=== PATIENT | female | born 1985 | race Caucasian/White ===

== ENCOUNTER → 2021-06-01 15:10 | Outpatient (CLI) | payer OTHER, SELFPAY ==
--- NOTE | 2021-06-01 11:30 | LES_PTH ---
PATIENT: JIE BHATIA [facility] U[facility][id number] AGE/SX: 40/F ROOM: RE06/01/[address]: Dr. Gaudencio Gooden MD : [id number] BED: DIS: SPEC #: [id number] RECD: 06/01/21 14:46 STATUS: CHRISTOPHE ADOLFO #: [id number] BRIAN: 06/01/21 11:[address]: Gaudencio Gooden DEPT: SURGICAL PATHOLOGY RECD BY: Kiesha Piper Tissues: Skin of eyelid, NOS Procedures: Surgery Specimen Level IV HEADER OPERATION: Excisional biopsy left lower lid PRE-OP DIAGNOSIS: Left lower lid lesion TISSUE SUBMITTED: Left lower lid MICROSCOPIC DIAGNOSIS Left lower lid lesion, excisional biopsy: Consistent with benign fibroepithelial polyp. SHONDA:albert 06/04/2021 COMMENT Case has been reviewed in consultation with Dr. Peñaloza who concurs with the above diagnosis. IDC:AM MICROSCOPIC DESCRIPTION Slides are reviewed. GROSS DESCRIPTION Received in fixative is one container labeled with the patient's name and designated LLL. The specimen consists of a piece of sanz-brown skin measuring 0.4 x 0.3 x 0.1 cm. The specimen is totally submitted in one cassette. / SJ:rg 06/02/21 TC:5 [facility]: [id number]
== END ==
PROVIDERS: Referring Provider Ophthalmology; Visit Provider Ophthalmology
DX: L98.9 Disorder of the skin and subcutaneous tissue, unspecified (principal)
CPT/HCPCS: 88305